=== PATIENT | female | born 1985 | race Caucasian/White ===

== ENCOUNTER 2017-02-13 18:28 | Emergency (ER) | payer BC ==
[2017-02-13 19:41] VITALS: BP 112/76
--- NOTE | 2017-02-13 21:07 | ED ---
Throat Pain/Nasal Congestion - HPI Summary HPI Summary: Pt here w/ URI sx x 2 weeks. Started when she was helping her mom w/ cleaning the attic - ST, sneezing, rhinorrhea. 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 Took a break from cleaning for a couple of days and felt better but sx returned again once she started cleaning again. She now has nasal congestion and PND w/ cough worse at night w/ lying down and in the morning - feels like phlegm has collected in throat all night - better as day goes on. Has tried Dayquil w/ relief but sx return once wears off. She tried an OTC allergy med once as well - not sure if this helped? 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 Imms are UTD. Denies fever, chills, N/V/D, rash, difficulty breathing , ab pain, GUZMAN sinus pain/pressure, or otalgia. - History of Current Complaint Chief Complaint: UCRespiratory Time Seen by Provider: 02/13/17 20:51 Hx Obtained From: Patient - Allergies/Home Medications Allergies/Adverse Reactions: Allergies Allergy/AdvReac Type Severity Reaction Status Date / Time No Known Allergies Allergy Verified 02/13/17 19:41 PMH/Surg Hx/FS Hx/Imm Hx Previously Healthy: Yes Respiratory History: Denies: Hx Asthma, Hx Seasonal Allergies - Surgical History Surgery Procedure, Year, and Place: appy, tonsilectomy Infectious Disease History: No Infectious Disease History: Denies: Traveled Outside the [place] in Last 30 Days - Family History Known Family History: Positive: None - Social History 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 Negative: Shortness Of Breath Gastrointestinal: Negative Positive: no symptoms reported Musculoskeletal: Negative Skin: Negative Neurological: Negative Psychological: Normal All Other Systems Reviewed And Are Negative: Yes Physical Exam Triage Information Reviewed: Yes Vital Signs On Initial Exam: Initial Vitals Temp Pulse Resp BP Pulse Ox 98.9 F 76 16 112/76 100 02/13/17 19:37 02/13/17 19:37 02/13/17 19:37 02/13/17 19:37 02/13/17 19:37 Vital Signs Reviewed: Yes Appearance: Positive: Well-Appearing, No Pain Distress, Well-Nourished Skin: Positive: Warm, Dry - macular erythematous rash over chest - blanching - pt reports she just had an argument w/ her boyfriend and she develops flushing like this when she's upset. Also has acne on her chin which appears edematous Head/Face: Positive: Normal Head/Face Inspection - sinuses NTTP Eyes: Positive: Normal, EOMI, Conjunctiva Clear. Negative: Conjunctiva Inflammed, Discharge ENT: Positive: Normal ENT inspection, Hearing grossly normal, Pharynx normal, Nasal congestion - mild, TMs normal. Negative: Pharyngeal erythema, Nasal drainage, Tonsillar swelling, Tonsillar exudate Neck: Positive: Supple, Nontender, No Lymphadenopathy Respiratory/Lung Sounds: Positive: Clear to Auscultation, Breath Sounds Present. Negative: Rales, Rhonchi, Stridor, Wheezes Cardiovascular: Positive: Normal, RRR Abdomen Description: Positive: Nontender, Soft Bowel Sounds: Positive: Present Musculoskeletal: Positive: Normal, Strength/ROM Intact Neurological: Positive: Normal, Sensory/Motor Intact, Alert, Oriented to Person Place, Time, CN Intact II-III Psychiatric: Positive: Anxious Diagnostics - Vital Signs Vital Signs Temp Pulse Resp BP Pulse Ox 02/13/17 19:37 98.9 F 76 16 112/76 100 - Laboratory Lab Statement: Any lab studies that have been ordered have been reviewed, and results considered in the medical decision making process. EENT Course/Dx - Course Course Of Treatment: Lingering viral URI vs. allergies. Advised pt to try more conservative care methods over the next 24-48 hours - if no relief, may start zithromax as she may have inhaled particles during cleaning that are triggering bacterial growth. Encouraged f/u w/ a PCP - she does not have one so will establish w/ a PCP this week. Reviewed danger s/sx of when to go to ED - pt agrees w/ plan. - Diagnoses Provider Diagnoses: URI (upper respiratory infection) Discharge - Discharge Plan Condition: Stable Disposition: HOME Patient Education Materials: Upper Respiratory Infection (ED), Allergies (ED) Forms: *Work Release Referrals: No Primary Care Phys,NOPCP [Primary Care Provider] - [facility] [Outside] Additional Instructions: You appear to have a viral URI and/or allergy symptoms. Try the following for 24 -48 hours: Nasal wash (netti pot) & throat gargle 2 x day with 8 ounces of warm water + 1/ 4 teaspoon of salt Drink 60+ ounces of water daily Sleep 8+ hours per night Avoid Dairy and sugar Hot herbal/decaf tea with lemon & honey Chicken broth (preferably organic, free range chicken) Humidifier in house, but especially near bed at night Try a facial steam with or without eucalyptus essential oil Anti-histamine such as zyrtec, claritin, benadryl - take before bed as these may make you drowsy. They will also help to dry secretions while sleeping. Ramón vapor rub on your chest for nasal congestion Ibuprofen alternating with acetaminophen for pain, fever Consider taking Vitamin D3 5,000iu and Vitamin C 1,000mg every day during illness If symptoms persist or worsen despite recommendations in next 48 hours, start zithromax Start probiotics in between and after completion of antibiotics (ie. Yogurt and/ or capsules of L. acidophilus, L. bifidus, L. casei, etc - make sure to get these from the refrigerated food section as they are live and active cultures) Follow-up with PCP - call tomorrow to establish an appointment later this week. *If you develop trouble breathing, swallowing, go to the ED
== END 2017-02-13 21:29 | disposition home or self-care (01) ==
LOC: UCCORT 18:28
DX: J06.9 Acute upper respiratory infection, unspecified (principal)
CPT/HCPCS: 99211; G0463

== ENCOUNTER 2018-09-15 09:45 | Emergency (ER) | payer BC ==
[2018-09-15 10:10] VITALS: BP 113/65
--- NOTE | 2018-09-15 10:31 | UC ---
Ear Complaint HPI - HPI Summary HPI Summary: Patient has had decreased hearing and feeling of fullness in the left ear for a while. denies throat pain or fever. - History of Current Complaint Chief Complaint: UCEar Stated Complaint: LEFT EAR COMPLAINT Time Seen by Provider: 09/15/18 09:59 Hx Obtained From: Patient Hx Last Menstrual Period: 07/27/18 ?: No Onset/Duration: Sudden Onset, Lasting Weeks Severity Initially: Mild Severity Currently: Mild Pain Intensity: 0 Associated Signs/Symptoms: Positive: Hearing Loss - Allergies/Home Medications Allergies/Adverse Reactions: Allergies Allergy/AdvReac Type Severity Reaction Status Date / Time No Known Allergies Allergy Verified 09/15/18 10:01 Home Medications: Home Medications Norethindr/Eth Estradiol(Nf) [Lo Loestrin Fe (NF)] 1 tab PO DAILY 09/15/18 [ History Confirmed 09/15/18] PMH/Surg Hx/FS Hx/Imm Hx Previously Healthy: Yes - Surgical History Surgical History: Yes Surgery Procedure, Year, and Place: appy, tonsilectomy - Family History Known Family History: Positive: None Negative: Cardiac Disease, Hypertension - Social History Alcohol Use: Occasionally Substance Use Type: None Smoking Status (MU): Never Smoked Tobacco Review of Systems All Other Systems Reviewed And Are Negative: Yes Constitutional: Positive: Negative Skin: Positive: Negative Eyes: Positive: Negative ENT: Positive: Ear Ache Respiratory: Positive: Negative Cardiovascular: Positive: Negative Gastrointestinal: Positive: Negative Genitourinary: Positive: Negative Motor: Positive: Negative Neurovascular: Positive: Negative Musculoskeletal: Positive: Negative Neurological: Positive: Negative, Headache Is Patient Immunocompromised?: No Physical Exam Triage Information Reviewed: Yes Appearance: Well-Appearing, No Pain Distress, Well-Nourished Vital Signs: Initial Vital Signs Temp 97.9 F 09/15/18 10:02 Pulse 80 09/15/18 10:02 Resp 16 09/15/18 10:02 BP 113/65 09/15/18 10:02 Pulse Ox 100 09/15/18 10:02 Vital Signs Reviewed: Yes Eye Exam: Normal ENT: Positive: Pharynx normal, TMs normal, Other - cerumen impaction of the left ear Dental Exam: Normal Neck exam: Normal Respiratory Exam: Normal Respiratory: Positive: Chest non-tender, Lungs clear, Normal breath sounds Cardiovascular Exam: Normal Cardiovascular: Positive: RRR, No Murmur, Pulses Normal Abdominal Exam: Normal Musculoskeletal Exam: Normal Neurological Exam: Normal Psychological Exam: Normal Skin Exam: Normal Ear Complaint Course/Dx - Course Course Of Treatment: Hx obtained, exam performed, meds reviewed, ear irrigation completed. - Differential Dx/Diagnosis Differential Diagnosis/HQI/PQRI: Cerumen Impaction, Foreign Body, Otitis Externa , Otitis Media, URI Provider Diagnosis: Impacted cerumen of left ear, Negative test Discharge - Sign-Out/Discharge Documenting (check all that apply): Patient Departure All imaging exams completed and their final reports reviewed: No Studies - Discharge Plan Condition: Stable Disposition: HOME Patient Education Materials: Cerumen Impaction (ED) Referrals: No Primary Care Phys,NOPCP [Primary Care Provider] - Additional Instructions: 1. YOur test today was negative. FOllow up with your ASSISTANT PARALEGAL if you do not start your cycle again in a week or two. 2. Ear wax removed. there are OTC drops you can use to dissolve wax, do not use qtips in your ears. 3. Follow up if ear pain persists - Billing Disposition and Condition Condition: STABLE Disposition: Home
[2018-09-15] MEDS ORDERED: Meclizine TAB* 12.5 MG PO ONE (10:40)
== END 2018-09-15 11:08 | disposition home or self-care (01) ==
LOC: UCCORT 09:45
DX: H61.22 Impacted cerumen, left ear (principal); Z32.02 Encounter for pregnancy test, result negative
CPT/HCPCS: 84702; 99212; A9270-GY; G0463

== ENCOUNTER 2019-06-27 18:44 | Emergency (ER) | payer BC ==
[2019-06-27 19:23] VITALS: BP 120/73
--- NOTE | 2019-06-27 20:01 | ED ---
Respiratory - HPI Summary HPI Summary: 34 yr old with cough. Onset four days ago. The patient has runny nose, mild sore throat as well. Symptoms are moderate. No NV. No stridor. No drooling. No fever. No other complaints. - History of Current Complaint Chief Complaint: UCGeneralIllness Stated Complaint: COUGH Time Seen by Provider: 06/27/19 19:27 Pain Intensity: 0 - Allergy/Home Medications Allergies/Adverse Reactions: Allergies Allergy/AdvReac Type Severity Reaction Status Date / Time No Known Allergies Allergy Verified 06/27/19 19:24 Home Medications: Home Medications Norethindrone-E.estradiol-Iron [Junel Fe 11/04 1-20 mg-Mcg] 1 tab PO DAILY [History Confirmed 06/27/19] PMH/Surg Hx/FS Hx/Imm Hx Respiratory History: Denies: Hx Asthma, Hx Seasonal Allergies - Surgical History Surgery Procedure, Year, and Place: appy, tonsilectomy Infectious Disease History: No Infectious Disease History: Denies: Traveled Outside the [place] in Last 30 Days - Family History Known Family History: Positive: None Negative: Cardiac Disease, Hypertension - Social History Occupation: Employed Full-time Alcohol Use: Occasionally Hx Substance Use: No Substance Use Type: Reports: None Hx Tobacco Use: No Smoking Status (MU): Never Smoked Tobacco Review of Systems Constitutional: Negative Positive: Sore Throat, Nasal Discharge Positive: Cough All Other Systems Reviewed And Are Negative: Yes Physical Exam Triage Information Reviewed: Yes Vital Signs On Initial Exam: Initial Vitals Temp Pulse Resp BP Pulse Ox 99.4 F 86 16 120/73 100 06/27/19 19:19 06/27/19 19:19 06/27/19 19:19 06/27/19 19:19 06/27/19 19:19 Vital Signs Reviewed: Yes Appearance: Positive: Well-Appearing, No Pain Distress Skin: Positive: Warm, Skin Color Reflects Adequate Perfusion Head/Face: Positive: Normal Head/Face Inspection Eyes: Positive: EOMI ENT: Positive: TM red - right TM with redness. Neck: Positive: Nontender Respiratory/Lung Sounds: Positive: Clear to Auscultation, Breath Sounds Present Cardiovascular: Positive: RRR. Negative: Murmur Abdomen Description: Negative: Distended Musculoskeletal: Positive: Strength/ROM Intact Neurological: Positive: Sensory/Motor Intact, Alert, Oriented to Person Place, Time, CN Intact II-III. Negative: Normal Gait, Speech Normal Psychiatric: Positive: Normal Diagnostics - Vital Signs Vital Signs Temp Pulse Resp BP Pulse Ox 06/27/19 19:19 99.4 F 86 16 120/73 100 - Laboratory Lab Statement: Any lab studies that have been ordered have been reviewed, and results considered in the medical decision making process. Disposition - Course Course Of Treatment: 34 yr old with right otitis media. Rx with Zithromax. - Diagnoses Provider Diagnoses: Right otitis media, Upper respiratory infection Discharge ED - Sign-Out/Discharge Documenting (check all that apply): Patient Departure All imaging exams completed and their final reports reviewed: No Studies - Discharge Plan Condition: Good Disposition: HOME Prescriptions: Azithromycin TAB* [Zithromax TAB (Z-MOUNA) 250 mg #6 tabs] 2 tab PO .TODAY, THEN 1 DAILY #1 mouna Patient Education Materials: Ear Infection (ED), Upper Respiratory Infection ( ED) Referrals: No Primary Care Phys,NOPCP [Primary Care Provider] - [facility] [place]] - 2 Days - Billing Disposition and Condition Condition: GOOD Disposition: Home
== END 2019-06-27 20:15 | disposition home or self-care (01) ==
LOC: UCCORT 18:44
DX: J06.9 Acute upper respiratory infection, unspecified (principal); H66.91 Otitis media, unspecified, right ear
CPT/HCPCS: 99212; G0463